=== PATIENT | female | born 1965 | race African-American/Black ===

== ENCOUNTER → 2017-12-22 | Outpatient (CLI) | payer OTHER, BC ==
[2017-12-22 08:41] LABS: POTASSIUM 3.2 mmol/L (3.5-5.1)
== END ==
LOC: M.LAB 03:10
PROVIDERS: Anesthesiology
DX: Z01.818 Encounter for other preprocedural examination (principal); E11.9 Type 2 diabetes mellitus without complications

== ENCOUNTER → 2019-05-17 | Outpatient (CLI) | payer OTHER, BC | LOC: M.MRI 07:23 | DX: S80.02XA Contusion of left knee, initial encounter (principal); S80.01XA Contusion of right knee, initial encounter; M17.12 Unilateral primary osteoarthritis, left knee; M71.22 Synovial cyst of popliteal space [Baker], left knee; M17.32 Unilateral post-traumatic osteoarthritis, left knee; R60.0 Localized edema; X58.XXXA Exposure to other specified factors, initial encounter; Y93.89 Activity, other specified; Y92.89 Other specified places as the place of occurrence of the external cause; Y99.8 Other external cause status ==

== ENCOUNTER 2019-09-05 06:30 | Inpatient (IN) | payer OTHER, BC ==
[~2019-09-05] VITALS: Ht 154.9 cm; Wt 92.5 kg
[~2019-09-05 06:30] MED LIST: ALLEGRA ALLERG180 MG PO; AMARYL2 MG PO; AZELASTINE137 MCG/0. NASAL; CRESTOR20 MG PO; GLYXAMBI 25 MG1 EACH PO; KLOR-CON 1010 MEQ PO; LOSARTAN-HCTZ1 EACH PO; NASACORT10.8 ML NARES; PIOGLITAZONE15 MG PO; PREVACID30 MG PO; SINGULAIR 10 MG10 M1 PO; ZANTAC 150MG T150 M1 PO
[2019-09-05 12:05] VITALS: BP 134/77
[2019-09-05 17:27] VITALS: BP 136/74
--- NOTE | 2019-09-05 18:11 | NUR ---
PATIENT ARRIVED TO UNIT AT APPROX 1715. ASSESSMENT COMPLETED AND CHARTED. VSS ON 3 LITERS 02. NO COMPLAINTS OF PAIN UPON ARRIVAL TO UNIT. FLUIDS STARTED AND INFUSED ORDERED. FALL PRECAUTIONS IN PLACE. CALL LIGHT WITHIN REACH. HOURLY ROUNDS. NURSING WILL CONTINUE TO MONITOR.
[2019-09-06] VITALS: BP 145/81
[2019-09-06 04:00] VITALS: BP 157/72
[2019-09-06 05:25] LABS: HEMATOCRIT 36.4 % (37.0-47.0)
--- NOTE | 2019-09-06 07:28 | NUR ---
PATIENT HAS SLEPT WELL THROUGHOUT MOST OF THE NIGHT. VSS ON 3L 02 VIA NASAL CANNUL AND CAPNO IN PLACE. PATIENTS PAIN HAS BEEN WELL CONTROLLED. MEDICATIONS GIVEN ORDERED AND CHARTED. PATIENT IS UP WITH ASSIST X 1 WITH [place] AND [facility] [place] [facility] [place]ESSING TO LEFT KNEE IS C/D/I AND ANAYELI HOSE, SCD'S AND POLAR PACK IN PLACE. HEMOVAC IN PLACE WITH MODERATED AMOUNT OF DRAINAGE. PATIENT PLACED ON CPM THIS AM AND TOLERATING WELL. IV IN LEFT FOREARM-1/2 NS @ 75ML/HR. FALL PRECAUTIONS IN PLACE AND HOURLY ROUNDS MADE. WILL CONTINUE WITH PLAN OF CARE AND NURSING TO MONITOR.
[2019-09-06 08:00] VITALS: BP 131/75
[2019-09-06] MEDS ORDERED: PERCOCET 5-3251 EACH PO (14:28)
[2019-09-06] MEDS ORDERED: XARELTO10 M1 PO (14:29)
[2019-09-06 14:30] VITALS: BP 131/75
[2019-09-06] MEDS ORDERED: LITE COAT ASPI325 MG PO (15:54)
--- NOTE | 2019-09-06 17:33 | NUR ---
ASSUMED CARE OF PATIENT AT APPROX 0730. ALERT AND ORIENTED X4. ASSESSMENT COMPLETED AND CHARTED. VSS ON ROOM AIR. PAIN MANAGED WITH ORAL PAIN MEDICATION. ANTIBIOTIC INFUSED ORDERED. PATIENT WORKED WELL WITH THERAPIES AND PROGRESSED TOWARD GOALS. PATIENT DISCHARGED AT 1720 WITH ALL PERSONAL BELONGINGS, PRESCRIPTIONS AND DISCHARGE INFORMATION.
--- NOTE | 2019-09-06 17:37 | NUR ---
RECIEVED O.T. EVAL AND TX ORDERS. WILL DEFER TO P.T. AT THIS TIME. PLEASE ORDER FURTHER O.T. SERVICES IF NEEDED.
--- NOTE | 2019-09-12 10:47 | OP ---
[facility] [address] [place] [address] OPERATIVE REPORT Name: ACACIA SANABRIA Room: [address] M.R.#: [id number] Admission: 09/05/19 Attend Phys: Marilee Browning Discharge: 09/06/19 Date of : 61 Report #: [id number] THIS REPORT FOR: //name// CC: Joe Jewell DATE OF SERVICE: 09/05/2019 PREOPERATIVE DIAGNOSIS: Left knee osteoarthritis. POSTOPERATIVE DIAGNOSIS: Left knee osteoarthritis. PROCEDURE: Left total knee arthroplasty. ANESTHESIA: General endotracheal. ESTIMATED BLOOD LOSS: 50 mL. ANTIBIOTICS: Ancef preoperatively. DRAINS: Hemovac. COMPLICATIONS: None. CONDITION OF THE PATIENT: Stable to recovery room. IMPLANTS: Listed in operative record and progress note. BRIEF HISTORY: The patient was seen in the preoperative area. Preoperative H and P was performed. Site was marked, questions were answered. Risks and benefits were discussed with the patient in detail about surgery. The patient wished to proceed, assuming all risks. DESCRIPTION OF PROCEDURE: The patient was taken to the operative suite and placed supine on the OR table, given appropriate anesthesia. A well-padded tourniquet was applied to the upper thigh, which was inflated to 300 mmHg after gravity exsanguination. The operative knee was sterilely prepped and draped. Surgery began by midline incision. This was carried down to the subcutaneous tissues. A medial parapatellar arthrotomy was performed and carried down to bone. The patella was then everted and excess soft tissue removed from around the femur. Femoral cutting block was then applied, checked with drop eduar for rotational alignment, pinned in appropriate position and appropriate cuts were made. A 4-in-1 cutting block was then applied, checked for rotational alignment, pinned in appropriate position and appropriate cuts were made. The tibia was then exposed. Excess meniscus was removed. [place] [address] OPERATIVE REPORT Name: ACACIA SANABRIA Room: [address] ..#: [id number] Admission: 09/05/19 Attend Phys: Marilee Browning Discharge: 09/06/19 Date of : 61 Report #: [id number] collateral ligaments. The tibial cutting block was then applied, pinned in appropriate position, checked with drop eduar for rotational alignment and slope and appropriate cut was made. Tibial bone was removed. Tibial base plate was then applied, checked for rotational alignment with the drop eduar and pinned in appropriate position. Femur was then applied and box cut was reamed. This was then trialed with appropriate spacer, which showed excellent fit and fill and excellent stability of the knee throughout all range of motion. The patella was reamed in appropriate fashion and sized to appropriate size. Three peg holes were drilled. It was then trialed and showed excellent flexion, extension, excellent tracking of the patella within the groove. These trials were removed. The tibia was punched in appropriate fashion. Bone ends were cleansed with Pulsavac irrigation and cement was mixed and applied to final implants. These were then malleted into position and held the knee in extension and compressed to allow cement to cure. After it cured, excess was removed using a [place] and osteotome. Wound was then copiously irrigated and the final spacer was then malleted into position. The tourniquet was deflated. Hemostasis was maintained with electrocautery. Pain cocktail was injected. PRP gel sprayed throughout the internal aspects of the knee. Medium Hemovac drain was applied. Capsule was closed with #2 FiberWire and #1 Vicryl in [id number] fashion. Skin was closed with 2-0 Vicryl and running 3-0 Monocryl. Dermabond and sterile dressing applied. Kenneth wrap and PolarCare applied. The patient transported to the recovery room in stable condition. Counts were correct throughout the procedure. <ELECTRONICALLY SIGNED> By: Pavel Man II, DO 09/12/19 [id number] Man II, DO /genesis
== END 2019-09-06 17:20 | disposition home or self-care (01) | DRG 470 ==
LOC: M.PRE 06:30 → M.TBA 11:38 → M.ORTHSURG 11:38 → M.PRE 16:09 → M.ORTHSURG 17:19
PROVIDERS: Orthopaedic Surgery; ADMIT Internal Medicine
PROC: 0SRD0J9 Replacement of Left Knee Joint with Synthetic Substitute, Cemented, Open Approach (ICD-10-PCS; principal; 2019-09-05)
DX: M17.12 Unilateral primary osteoarthritis, left knee (principal); E11.9 Type 2 diabetes mellitus without complications; E78.00 Pure hypercholesterolemia, unspecified; I10 Essential (primary) hypertension; K21.9 Gastro-esophageal reflux disease without esophagitis; E78.1 Pure hyperglyceridemia; Z88.2 Allergy status to sulfonamides; Z91.040 Latex allergy status; Z79.899 Other long term (current) drug therapy; Z90.49 Acquired absence of other specified parts of digestive tract; Z83.3 Family history of diabetes mellitus; Z80.8 Family history of malignant neoplasm of other organs or systems; Z83.6 Family history of other diseases of the respiratory system